=== PATIENT | male | born 1970 | race Caucasian/White ===

== ENCOUNTER 2017-07-31 16:50 | Emergency (ER) | payer BC ==
[~2017-07-31] VITALS: Ht 170.2 cm; Wt 112.7 kg
[~2017-07-31 16:50] MED LIST: ASPI-232 PO; LISI20TA3 PO
[2017-07-31 16:53] VITALS: TEMP 36.9; Ht 170.2 cm; Wt 112.7 kg
[2017-07-31] MEDS ORDERED: PANTOprazole INJ 40 MG in SYRINGE 0 ML IV ONE (17:15)
[2017-07-31 17:49] LABS: BASO % 0.1 %; BASO ABS # 0.01 K/uL (0-0.2); EOS % 0.6 %; EOS ABS # 0.05 K/uL (0-0.5); HEMATOCRIT 42.6 % (42-52); HEMOGLOBIN 15.2 g/dL (14.0-18.0); IG# 0.01 K/uL (0.00-0.02); LYMPH % 26.6 %; LYMPH ABS # 2.12 K/uL (1.2-3.4); MEAN CELL VOLUME 87.8 fL (80-100); MEAN CORPUSCULAR HEMOGLOBIN 31.3 pg (25-34); MEAN CORPUSCULAR HGB CONC 35.7 g/dl (32-36); MEAN PLATELET VOLUME 9.2 fL (7.4-10.4); MONO % 7.8 %; MONO ABS # 0.62 K/uL (0.11-0.59); NEUT % 64.8 %; NEUT ABS # 5.15 K/uL (1.4-6.5); PLATELET COUNT 208 K/uL (130-400); RED CELL DISTRIBUTION WIDTH CV 12.7 % (11.5-14.5); WHITE BLOOD COUNT 7.96 K/uL (4.8-10.8)
[2017-07-31 18:09] LABS: ALBUMIN 3.9 gm/dl (3.4-5.0); CALCIUM 8.9 mg/dl (8.5-10.1); CREATININE 1.07 mg/dl (0.60-1.40)
[2017-07-31 18:12] LABS: TOTAL PROTEIN 8.4 gm/dl (6.4-8.2)
--- NOTE | 2017-07-31 18:30 | DIAGNOSTIC IMAGING REPORT ---
ABDOMINAL ULTRASOUND, RIGHT UPPER QUADRANT HISTORY: Right upper quadrant pain. COMPARISON: CT of the abdomen and pelvis April 06, 2009. FINDINGS: This exam is moderately compromised by suboptimal penetration. Increased hepatic echogenicity is noted. No hepatic lesions are identified although sensitivity is diminished on this exam. No gallstones are identified. There is no biliary ductal dilatation. The common bile duct measures 5 mm in caliber. The pancreatic body is normal. Head and tail are obscured. There is no right hydronephrosis. IMPRESSION: 1. No gallstones or biliary ductal dilatation. 2. Fatty infiltration of the liver. 3. Study moderately compromised by suboptimal penetration. Largely obscured pancreas. Electronically signed by: Yayo Aguirre M.D. 07/31/2017 6:29 PM Dictated Date/Time: 07/31/2017 6:28 PM
--- NOTE | 2017-07-31 18:40 | EMERGENCY ROOM VISIT NOTE ---
History First contact with patient: 16:56 Chief Complaint: ABDOMINAL PAIN Stated Complaint: ABD PAIN,GALLBLADDER History of Present Illness The patient is a 46 year old male who presents to the Emergency Room with complaints of right upper quadrant and epigastric pain. The patient was just seen here on the for the substernal chest pain but at that time he also had some pain radiating down his arm which he thought was coming from his neck. He had a complete cardiac workup which was negative. The patient states that he has had intermittent symptoms similar to this in the past. He was on an over -the-counter PPI in the past but went off of it several years ago. The patient states now he noticed after eating he gets some pain in the epigastric and right upper quadrant. He states he looked it up on [employer] and thought it might be his gallbladder which is why he is here today. The patient does admit to some slight nausea but denies any vomiting. He also states he has had decreased appetite. He also admits to increased heartburn. He has not taken anything [id number] recently for these symptoms. Review of Systems 10 system review was performed and was negative unless stated otherwise history of present illness. Past Medical/Surgical History Medical Problems: (1) Calculus Of Kidney (2) Cervicalgia (3) GERD (gastroesophageal reflux disease) (4) Hypertension Nos Surgical Problems: (1) No history of previous surgery Family History FH: diabetes mellitus FH: hypertension FH: skin cancer Heart disease Kidney stone Social History Smoking Status: Former Smoker Alcohol Use: none Marital Status: single Housing Status: lives with family Occupation Status: employed Current/Historical Medications Scheduled Lisinopril (Prinivil), 20 MG PO DAILY Physical Exam Vital Signs Date Time Temp Pulse Resp B/P (MAP) Pulse Ox O2 Delivery O2 Flow Rate FiO2 07/31/17 16:53 36.9 75 16 146/95 98 Room Air Physical Exam GENERAL: 46-year-old male appears in no acute distress. MENTAL Status: Alert and oriented 3. MOUTH: Mucosa is moist NECK: Supple, no lymphadenopathy noted. No carotid bruits noted. LUNGS: Clear auscultation without wheezes rales or rhonchi. CARDIAC: Regular rate and rhythm without murmur. Pulses is full and equal throughout. BACK: No CVA tenderness noted. ABDOMEN: Positive bowel sounds all 4 quadrants. Soft, mild to moderate tenderness in the right upper quadrant and epigastric region otherwise nontender to palpation without organomegaly or masses. EXTREMITIES: No cyanosis or edema noted. Medical Decision & Procedures ER Provider Diagnostic Interpretation: ABDOMINAL ULTRASOUND, RIGHT UPPER QUADRANT HISTORY: Right upper quadrant pain. COMPARISON: CT of the abdomen and pelvis April 06, 2009. FINDINGS: This exam is moderately compromised by suboptimal penetration. Increased hepatic echogenicity is noted. No hepatic lesions are identified although sensitivity is diminished on this exam. No gallstones are identified. There is no biliary ductal dilatation. The common bile duct measures 5 mm in caliber. The pancreatic body is normal. Head and tail are obscured. There is no right hydronephrosis. IMPRESSION: 1. No gallstones or biliary ductal dilatation. 2. Fatty infiltration of the liver. 3. Study moderately compromised by suboptimal penetration. Largely obscured pancreas. Electronically signed by: Yayo Aguirre M.D. Laboratory Results 07/31/17 17:37 Red Blood Count 4.85, Mean Corpuscular Volume 87.8, Mean Corpuscular Hemoglobin 31.3, Mean Corpuscular Hemoglobin Concent 35.7, Mean Platelet Volume 9.2, Neutrophils (%) (Auto) 64.8, Lymphocytes (%) (Auto) 26.6, Monocytes (%) (Auto) 7.8, Eosinophils (%) (Auto) 0.6, Basophils (%) (Auto) 0.1, Neutrophils # (Auto) 5.15, Lymphocytes # (Auto) 2.12, Monocytes # (Auto) 0.62, Eosinophils # (Auto) 0.05, Basophils # (Auto) 0.01 07/31/17 17:37 Test 07/31/17 17:37 White Blood Count 7.96 K/uL (4.8-10.8) Red Blood Count 4.85 M/uL (4.7-6.1) Hemoglobin 15.2 g/dL (14.0-18.0) Hematocrit 42.6 % (42-52) Mean Corpuscular Volume 87.8 fL (80-100) Mean Corpuscular Hemoglobin 31.3 pg (25-34) Mean Corpuscular Hemoglobin Concent 35.7 g/dl (32-36) Platelet Count 208 K/uL (130-400) Mean Platelet Volume 9.2 fL (7.4-10.4) Neutrophils (%) (Auto) 64.8 % Lymphocytes (%) (Auto) 26.6 % Monocytes (%) (Auto) 7.8 % Eosinophils (%) (Auto) 0.6 % Basophils (%) (Auto) 0.1 % Neutrophils # (Auto) 5.15 K/uL (1.4-6.5) Lymphocytes # (Auto) 2.12 K/uL (1.2-3.4) Monocytes # (Auto) 0.62 K/uL (0.11-0.59) Eosinophils # (Auto) 0.05 K/uL (0-0.5) Basophils # (Auto) 0.01 K/uL (0-0.2) RDW Standard Deviation 41.0 fL (36.4-46.3) RDW Coefficient of Variation 12.7 % (11.5-14.5) Immature Granulocyte % (Auto) 0.1 % Immature Granulocyte # (Auto) 0.01 K/uL (0.00-0.02) Anion Gap 9.0 mmol/L (3-11) Est Creatinine Clear Calc Drug Dose 103.4 ml/min Estimated GFR () 96.0 Estimated GFR (Non- 82.8 BUN/Creatinine Ratio 18.3 (10-20) Calcium Level 8.9 mg/dl (8.5-10.1) Total Bilirubin 0.4 mg/dl (0.2-1) Direct Bilirubin 0.1 mg/dl (0-0.2) Aspartate Amino Transf (AST/SGOT) 37 U/L (15-37) Alanine Aminotransferase (ALT/SGPT) 58 U/L (12-78) Alkaline Phosphatase 75 U/L (45-117) Total Protein 8.4 gm/dl (6.4-8.2) Albumin 3.9 gm/dl (3.4-5.0) Lipase 169 U/L (73-393) Medications Administered Medications (Trade) Dose Ordered Sig/Caryn Route Start Time Stop Time Status Last Admin Dose Admin Pantoprazole Sodium 40 mg/ Syringe 10 ml @ 5 mls/min NOW ONCE IV 07/31/17 17:15 07/31/17 17:16 DC 07/31/17 17:41 5 MLS/MIN ED Course The patient was evaluated. The patient's EMR medication list were reviewed. The patient had a complete cardiac workup done several days ago which was completely normal. IV access was obtained. The patient was given Protonix 40 mg IV push. CBC and differential, renal profile, LFTs and lipase levels were ordered. Ultrasound of the gallbladder was ordered interpreted by the radiologist as above without any evidence of acute cholecystitis. Fatty liver was noted.. Labs are reviewed. The patient's white count was normal. Renal profile revealed BUN slightly elevated at 20. LFTs were normal as well as lipase. The patient was informed of all findings. The patient was discharged to home in stable condition. Medical Decision Differential diagnosis include peptic ulcer disease, heartburn, GERD, acute cholecystitis, cholelithiasis [place] Drug Monitoring Program Search Results: patient reviewed within database Medication Reconcilliation Current Medication List: was personally reviewed by me Blood Pressure Screening Patient's blood pressure: Elevated blood pressure Blood pressure disposition: Elevated BP felt to be situational Impression Primary Impression: Epigastric pain Additional Impression: Right upper quadrant pain Departure Information Dispostion Home / Self-Care Condition GOOD Referrals Hari Cristina M.D. (PCP) Forms Call Back Authorization, HOME CARE DOCUMENTATION FORM, IMPORTANT VISIT INFORMATION Patient Instructions ED Epigastric Pain Audrey ALTMAN [facility] Additional Instructions Recommend [id number] Prilosec or Prevacid daily as directed on the label. Also recommend Zantac 150 mg at bedtime. Avoid spicy or acidic foods. Do not eat for 3-4 hours before going to bed. If symptoms are not improving recommend follow-up with your family doctor for further evaluation and diagnostic testing. Problem Qualifiers
[2017-07-31 18:53] VITALS: BP 141/99; PULSE 64; O2SAT 93
== END 2017-07-31 18:55 | disposition home or self-care (01) ==
LOC: C.EDB 16:52 → C.EDC 18:55
DX: R10.11 Right upper quadrant pain (principal); R10.13 Epigastric pain; K21.9 Gastro-esophageal reflux disease without esophagitis; I10 Essential (primary) hypertension; Z87.442 Personal history of urinary calculi; Z87.891 Personal history of nicotine dependence; Z83.3 Family history of diabetes mellitus; Z82.49 Family history of ischemic heart disease and other diseases of the circulatory system; Z84.1 Family history of disorders of kidney and ureter; Z80.8 Family history of malignant neoplasm of other organs or systems

== ENCOUNTER 2017-08-17 07:51 | Emergency (ER) | payer BC ==
[~2017-08-17] VITALS: Ht 170.2 cm; Wt 109.4 kg
[~2017-08-17 07:51] MED LIST changes: -ASPI-232 PO
[2017-08-17 07:54] VITALS: PULSE 64; TEMP 36.7; O2SAT 97; Ht 170.2 cm; Wt 109.4 kg
[2017-08-17] MEDS ORDERED: PRLSR20 PO (08:44)
--- NOTE | 2017-08-17 09:11 | DIAGNOSTIC IMAGING REPORT ---
C-SPINE ROUTINE 4 OR 5 VIEWS HISTORY: 46 years-old Male LEFT SIDED NECK PAIN acute on chronic left-sided neck pain without known injury COMPARISON: None available TECHNIQUE: 5 views of the cervical spine FINDINGS: The seventh vertebral segment is partially obscured on the lateral view secondary to the patient's overlying shoulder. There is no acute fracture or subluxation identified. Mild multilevel uncovertebral spurring. Spurring of the C2 spinous process also noted. Uncovertebral spurring results in at least mild bilateral foraminal narrowing at C3-C4. There may also be mild left-sided foraminal narrowing at C4-C5. No prevertebral soft tissue swelling. No opaque foreign body. Imaged lung apices appear clear. IMPRESSION: 1. No acute fracture or subluxation. 2. Mild degenerative changes as above. The above report was generated using voice recognition software. It may contain grammatical, syntax or spelling errors. Electronically signed by: Gabriel Clifton M.D. 08/17/2017 9:10 AM Dictated Date/Time: 08/17/2017 9:08 AM
--- NOTE | 2017-08-17 09:28 | EMERGENCY ROOM VISIT NOTE ---
ED Visit Note First contact with patient: 07:59 CHIEF COMPLAINT: Left-sided neck pain radiating into the left upper arm 2-3 days HPI : Patient is a [id number] 46-year-old white male who presents emergency department accompanied by family for evaluation of left-sided neck pain radiating into the left upper arm. 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 His pain had been intermittent. He has noticed increasing pain over the last 2-3 days, states that the pain actually woke him from sleep this morning. He has not done anything recently for his pain, and has not tried any medications for this acute episode. He notes a pain in the musculature of the left side of his neck that radiates into the upper back and into the upper arm, stopping at the elbow. He denies any numbness, tingling or weakness into the hands. He describes the pain as a deep, aching pain and rates it a 3/10. He cannot relate any new injury, unusual activity, heavy lifting which would have exacerbated his symptoms. This is the patient's third emergency department department visit in as many weeks, as he was recently seen for chest pain and abdominal pain. He reports that he had follow-up with his primary care provider and is in the process of seeing GI. He had a HIDA scan and is scheduled for an endoscopy. He states that his symptoms today are not related to his 2 prior ED visits. REVIEW OF SYSTEMS: Review of systems as per HPI. All other systems reviewed were negative. 10 systems reviewed. PMH: Electronic medical records are reviewed and summarized as above/below. See Problem List. SOCIAL HISTORY: Patient lives at home with parents. Employed, nonsmoker. PHYSICAL EXAM: Vital Signs: Reviewed Nurse's notes. MENTAL STATUS: Patient is an overweight 46-year-old white male who is awake and alert and in no acute distress. HEENT: Normocephalic, atraumatic. Pupils equal, round, reactive to light and accommodation. EOMs intact without nystagmus. Sclera are anicteric. Tympanic membranes intact, with normal landmarks. External canals are clear. Oral and nasopharynx are clear. Mucous membranes are moist. MUSCULOSKELETAL: Examination the patient's neck show no obvious abnormality. He does not have any reproducible tenderness to palpation over the spinous processes of the cervical or upper thoracic spine. He does have left-sided paraspinous muscle and trapezius muscle tenderness, without focal spasm. Full cervical spine range of motion is noted. Shoulder is nontender to palpation and has full range of motion. The bilateral upper extremities are neurovascularly intact. DTRs are equal and symmetrical bilaterally. HEART: Regular rate and rhythm. LUNGS: Clear to auscultation. EMERGENCY DEPARTMENT COURSE: The patient was seen and assessed as above. His old records were reviewed including his most recent ED visits. He presents emergency department for evaluation of left-sided neck pain with radicular symptoms into the left upper arm. Cervical spine x-rays were obtained, and noted mild arthritic changes and foraminal narrowing, primarily on the left. This certainly could be contributing to the patient's symptoms. He does not have any upper extremity weakness to suspect acute cord compression or myelopathy. He essentially has done nothing for his symptoms recently and therefore supportive care measures were discussed. He is encouraged to use an anti-inflammatory medicine, apply heat, and perform gentle stretching and range of motion exercises to help reduce stiffness and spasm. He was advised to follow-up with his primary care provider for recheck as he may be a good candidate for physical therapy. The pain is reproducible on exam and worse with movement and highly suspicious for musculoskeletal pain, particularly given that he had a negative cardiac workup very recently. I do not suspect arm pain to be cardiac in nature. Medication reconciliation: I attest that I have personally reviewed the patient' s current medication list. Blood pressure screening : Patient was found to have normal blood pressure on screening and does not require follow-up C-SPINE ROUTINE 4 OR 5 VIEWS HISTORY: 46 years-old Male LEFT SIDED NECK PAIN acute on chronic left-sided neck pain without known injury COMPARISON: None available TECHNIQUE: 5 views of the cervical spine FINDINGS: The seventh vertebral segment is partially obscured on the lateral view secondary to the patient's overlying shoulder. There is no acute fracture or subluxation identified. Mild multilevel uncovertebral spurring. Spurring of the C2 spinous process also noted. Uncovertebral spurring results in at least mild bilateral foraminal narrowing at C3-C4. There may also be mild left-sided foraminal narrowing at C4-C5. No prevertebral soft tissue swelling. No opaque foreign body. Imaged lung apices appear clear. IMPRESSION: 1. No acute fracture or subluxation. 2. Mild degenerative changes as above. Problem List Medical Problems: (1) Calculus Of Kidney Status: Resolved (2) Chest pain Status: Resolved (3) Exposure to carbon monoxide Status: Resolved (4) GERD (gastroesophageal reflux disease) Status: Chronic (5) Headache Status: Resolved (6) Left cervical radiculopathy Status: Chronic (7) Stomach problems Status: Chronic (8) Substernal chest pain Status: Resolved Current/Historical Medications Scheduled Lisinopril (Prinivil), 20 MG PO DAILY Omeprazole (Prilosec), 20 MG PO DAILY Allergies Coded Allergies: No Known Allergies (Unverified , NONE, 07/31/17) Vital Signs Date Time Temp Pulse Resp B/P (MAP) Pulse Ox O2 Delivery O2 Flow Rate FiO2 08/17/17 09:46 118/62 08/17/17 07:54 36.7 64 18 127/79 97 Room Air Departure Information Impression Primary Impression: Neck pain Referrals Hari Cristina M.D. (PCP) Patient Instructions [facility] Additional Instructions Ibuprofen(Motrin, Advil) may be used for fever or pain. Use 600mg every six hours as needed. Take with food. Avoid using more than 2400mg in a 24 hour period. Do not use 2400mg per day for more than three consecutive days without physician direction. Prolonged inappropriate use can lead to stomach upset or ulcers. This medication can be taken if you need to drive, work, or perform activities which may be dangerous when taking narcotic pain medication. (AND/OR) Acetaminophen(Tylenol) may be used for fever or pain. Use 1000mg every six hours as needed. Avoid using more than 3000mg in a 24 hour period. This medication can be taken if you need to drive, work, or perform activities which may be dangerous when taking narcotic pain medication. Rest and avoid heavy lifting until your symptoms resolve and then gradually return to full activity. A good rule of thumb is if it hurts your back to perform a certain activity, then it should be avoided until you are healthy again. A heating pad, warm compresses, or a hot shower may help with tight muscles and can be done several times a day as needed. Continue current medications. Return to the ER immediately for any numbness, tingling, severe pain, loss of control of your bowels or bladder, inability to walk, or as needed. Follow up with your primary care physician within 3-5 days for a recheck of your current condition.
[2017-08-17 09:46] VITALS: BP 118/62
== END 2017-08-17 09:47 | disposition home or self-care (01) ==
LOC: C.EDB 07:52
DX: M54.2 Cervicalgia (principal); K21.9 Gastro-esophageal reflux disease without esophagitis; Z87.442 Personal history of urinary calculi; Z79.899 Other long term (current) drug therapy